=== PATIENT | male | born 1965 | race Caucasian/White ===

== ENCOUNTER 2021-05-21 21:48 | Emergency (ER) | payer SELFPAY ==
[~2021-05-21] VITALS: Ht 188 cm; Wt 93.0 kg
[2021-05-21] MEDS ORDERED: IPRATRPIUM/ALBUTEROL 0.5/2.5MG 3 ML NEBU. NEB ONE (22:00)
[2021-05-21] MEDS ORDERED: ALBUTEROL SULFATE 2.5 MG/3 ML NEBU. CONT NEB ONE (22:00)
[2021-05-21 22:21] LABS: BASO % 0 % (0-3); EOS # 0.2 x10^3/uL (0.0-0.7); EOS % 2 % (0-3); HEMATOCRIT 44.6 % (39.0-53.0); HEMOGLOBIN 15.2 g/dL (13.0-17.5); LYMPH # 3.2 x10^3/uL (1.0-4.8); LYMPH % 30 % (24-48); MEAN CORPUSCULAR HEMOGLOBIN 30 pg (25-35); MEAN CORPUSCULAR HGB CONC 34 g/dL (31-37); MEAN CORPUSCULAR VOLUME 88 fL (79-100); MONO % 10 % (0-9); NEUT % 58 % (31-73); PLATELET COUNT 265 x10^3/uL (140-400); RED BLOOD COUNT 5.09 x10^6/uL (4.30-5.70); RED CELL DISTRIBUTION WIDTH 14.1 % (11.5-14.5); WHITE BLOOD COUNT 10.5 x10^3/uL (4.0-11.0)
[2021-05-21 22:31] LABS: CALCIUM 8.7 mg/dL (8.5-10.1); CREATININE 0.7 mg/dL (0.7-1.3); GFR 116.2; POTASSIUM 4.1 mmol/L (3.5-5.1)
[2021-05-21 22:37] LABS: ALBUMIN 3.5 g/dL (3.4-5.0); ALBUMIN/GLOBULIN RATIO 1.1 (1.0-1.7); TOTAL BILIRUBIN 0.2 mg/dL (0.2-1.0); TOTAL PROTEIN 6.8 g/dL (6.4-8.2)
[2021-05-21] MEDS ORDERED: methylPREDNISolone SOD SUCC PF 125 MG/2 ML VIAL. IV ONE (22:45)
[2021-05-21] MEDS ORDERED: ALBU2.5V8 IH (23:50)
[2021-05-21] MEDS ORDERED: PRED50TA PO (23:50)
--- NOTE | 2021-05-21 23:50 | PHYS DOC ---
Past Medical History Past Medical History: COPD, Hepatitis, Seizure, Other Additional Past Medical Histor: HEARING LOSS LEFT EAR Past Surgical History: No Surgical History Smoking Status: Current Every Day Smoker Alcohol Use: Occasionally Social History Narrative: DANIA HANKS General Adult EDM: Chief Complaint: DYSPNEA/RESPIRATORY DISTRESS HPI: HPI: Patient is a 55 year old male who presents to the emergency department chief complaint of shortness of breath after smoking marijuana and a substance that he believes might have been cracked but could have been methamphetamines. Patient states that he has a long history of smoking anything he can get a hold of to include pot, opium, heroin, crack cocaine, cocaine, and methamphetamines. Patient states that he smokes 2 or more packs of cigarettes per day. Patient states she does drink occasionally, but it is not his drug of choice per his statement. Patient denies any chest pains, denies nausea, vomiting, diarrhea, denies rashes to his skin. Patient states he is hard of hearing on the left ear related to an old injury. Patient states people was talking to his right ear for him to hear properly. Patient reports an allergy to lithium, states he takes Tegretol for seizures, states he has not had a seizure in several weeks now. Patient states his primary care is at [facility] and [facility]. Patient denies any other physical complaints or physical concerns. Review of Systems: Review of Systems: 14 body systems of review of systems have been reviewed. See HPI for pertinent positives and negative responses, otherwise all other systems are negative, nonpertinent or noncontributory. Heart Score: C/O Chest Pain: No Risk Factors: Risk Factors: DM, Current or recent (<one month) smoker, HTN, HLP, family history of CAD, obesity. Risk Scores: Score 0 - 3: 2.5% MACE over next 6 weeks - Discharge Home Score 4 - 6: 20.3% MACE over next 6 weeks - Admit for Clinical Observation Score 7 - 10: 72.7% MACE over next 6 weeks - Early Invasive Strategies Current Medications: Current Medications Medications (Trade) Dose Ordered Sig/Cinthya Start Time Stop Time Status Last Admin Dose Admin Albuterol Sulfate (Ventolin Neb Soln) 10 mg 1X ONCE 05/21/21 22:00 05/21/21 22:36 DC 05/21/21 22:25 10 MG Albuterol/ Ipratropium (Duoneb) 3 ml 1X ONCE 05/21/21 22:00 05/21/21 22:36 DC 05/21/21 22:25 3 ML Methylprednisolone Sodium Succinate (SOLU-Medrol 125MG VIAL) 125 mg 1X ONCE 05/21/21 22:45 05/21/21 22:46 DC 05/21/21 22:42 125 MG Allergies: Allergies: Allergies Coded Allergies Type Severity Reaction Last Updated Verified lithium Allergy Intermediate 05/21/21 Yes Physical Exam: PE: Constitutional: Well developed, well nourished, mild respiratory distress, non- toxic appearance. 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 HENT: Normocephalic, atraumatic. No drooling, no trismus. Eyes: Conjunctiva normal, no discharge. Patient wears glasses. Neck: Normal range of motion, no stridor. No nuchal rigidity appreciated, no meningismus signs. Cardiovascular: No cyanosis appreciated, distal cap refill less than 2 seconds. Lungs & Thorax: Audible I/E wheezing, inspiratory expiratory wheezing appreciated all lung cox per auscultation. Patient not using accessory m uscles. Abdomen: Nontender, no abnormalities noted. Skin: Warm, dry, no erythema, no rash. [] Back: No tenderness, no deformities. Extremities: No tenderness, no cyanosis, no clubbing, ROM intact, no edema. [] Neurologic: Alert and oriented X 3, normal motor function, normal sensory function, no focal deficits noted. Psychologic: Affect normal, judgement normal, mood normal. Current Patient Data: Labs: Laboratory Tests Test 05/21/21 22:05 White Blood Count 10.5 x10^3/uL (4.0-11.0) Red Blood Count 5.09 x10^6/uL (4.30-5.70) Hemoglobin 15.2 g/dL (13.0-17.5) Hematocrit 44.6 % (39.0-53.0) Mean Corpuscular Volume 88 fL (79-100) Mean Corpuscular Hemoglobin 30 pg (25-35) Mean Corpuscular Hemoglobin Concent 34 g/dL (31-37) Red Cell Distribution Width 14.1 % (11.5-14.5) Platelet Count 265 x10^3/uL (140-400) Neutrophils (%) (Auto) 58 % (31-73) Lymphocytes (%) (Auto) 30 % (24-48) Monocytes (%) (Auto) 10 % (0-9) H Eosinophils (%) (Auto) 2 % (0-3) Basophils (%) (Auto) 0 % (0-3) Neutrophils # (Auto) 6.0 x10^3/uL (1.8-7.7) Lymphocytes # (Auto) 3.2 x10^3/uL (1.0-4.8) Monocytes # (Auto) 1.0 x10^3/uL (0.0-1.1) Eosinophils # (Auto) 0.2 x10^3/uL (0.0-0.7) Basophils # (Auto) 0.0 x10^3/uL (0.0-0.2) Sodium Level 141 mmol/L (136-145) Potassium Level 4.1 mmol/L (3.5-5.1) Chloride Level 104 mmol/L (98-107) Carbon Dioxide Level 29 mmol/L (21-32) Anion Gap 8 (6-14) Blood Urea Nitrogen 16 mg/dL (8-26) Creatinine 0.7 mg/dL (0.7-1.3) Estimated GFR (Cockcroft-Gault) 116.2 BUN/Creatinine Ratio 23 (6-20) H Glucose Level 113 mg/dL (70-99) H Lactic Acid Level 1.4 mmol/L (0.4-2.0) Calcium Level 8.7 mg/dL (8.5-10.1) Total Bilirubin 0.2 mg/dL (0.2-1.0) Aspartate Amino Transferase (AST) 37 U/L (15-37) Alanine Aminotransferase (ALT) 39 U/L (16-63) Alkaline Phosphatase 104 U/L (46-116) Troponin I Quantitative < 0.017 ng/mL (0.000-0.055) WV-Mix-Z-Type Natriuretic Peptide 247 pg/mL (0-124) H Total Protein 6.8 g/dL (6.4-8.2) Albumin 3.5 g/dL (3.4-5.0) Albumin/Globulin Ratio 1.1 (1.0-1.7) Laboratory Tests 05/21/21 22:05 Laboratory Tests 05/21/21 22:05 Vital Signs: Vital Signs Date Time Temp Pulse Resp B/P (MAP) Pulse Ox O2 Delivery O2 Flow Rate FiO2 05/21/21 23:07 104 20 127/78 (94) 95 Room Air 05/21/21 22:31 2.0 05/21/21 21:52 98.6 98.6 EKG: EKG: [] Radiology/Procedures: Radiology/Procedures: PATIENT: ANNA MOORE ACCOUNT: [id number] : 1965 LOCATION: ER AGE: 55 SEX: M EXAM STATUS: REG ER ORD. PHYSICIAN: CARRI LÓPEZ APRN REASON: short of breath/BREATHING TX OVER AT 11:30 PROCEDURE: PORTABLE CHEST 1V AP chest. HISTORY: Short of breath AP view was taken of the chest. Lungs are free of infiltrates. Heart is normal in size. There is no effusion. There is an old healed right clavicle fracture. IMPRESSION: 1. No acute infiltrates. Electronically signed by: Wilbur Estrella MD (05/21/2021 11:50 PM) [facility] DICTATED and SIGNED BY: WILBUR ESTRELLA MD DATE: 05/21/21 [id number] 0 Course & Med Decision Making: Course & Med Decision Making Pertinent Labs and Imaging studies reviewed. (See chart for details) 55-year-old male, vital signs reviewed, presents emergency department chief co mplaint of shortness of breath after smoking an unknown substance that he believes was either crack or methamphetamine. Physical presentation patient had audible IV wheezing, patient was not hypoxic, patient was not cyanotic, will order PITER treatment followed by continuous albuterol nebulizer treatment. Chest x-ray. 125 mg of Solu-Medrol IV. Patient's chest x-ray negative for acute process, patient was in no respiratory distress upon reevaluation after breathing treatments, discussed with patient cessation of illicit drug use and smoking, discussed with patient prescriptions for oral prednisone and albuterol MDI. Patient gave verbal understanding of discharge home instructions, follow-up with primary care physician at treatment tomorrow, return to ER precautions and concerns, patient had no further questions or concerns and was thankful for helping him feel better and breathe better, patient was discharged to home without incident, remained hemodynamically stable at disposition time. Dragon Disclaimer: Dragon Disclaimer: This electronic medical record was generated, in whole or in part, using a voice recognition dictation system. Departure Departure Impression: Primary Impression: Dyspnea Qualified Codes: R06.02 - Shortness of breath Additional Impression: Polysubstance abuse Disposition: HOME / SELF CARE / HOMELESS Condition: GOOD Referrals: UNKNOWN PCP NAME (PCP) Additional Instructions: You were seen today in the emergency department for shortness of breath. You were given breathing treatments and steroids through an IV helped resolve your symptoms. You had indicated you smoke multiple different types of drugs to in clude meth and crack cocaine. Please stop smoking illicit drugs as they will make your symptoms worse. I am prescribing you a prescription for an inhaler and an oral steroid and [facility] as you have requested. Please fill them and start tomorrow. Take them as directed. Please return to the emergency department for worsening symptoms or other concerns. It was a pleasure taking care of you today in the emergency department and I thank you for allowing me to participate in your emergency room care. EMERGENCY DEPARTMENT GENERAL DISCHARGE INSTRUCTIONS Thank you for coming to [facility] Emergency Department (ED) today and trusting us with you care. We trust that you had a positive experience in our Emergency Department. If you wish to speak to the department management, you may call the Director at [phone]. YOUR FOLLOW UP INSTRUCTIONS ARE FOLLOWS: 1. Do you have a private Doctor? If you do not have a private doctor, please ask for a resource list of physicians or clinics that may be able to assist you with follow up care. 2. The Emergency Physicain has interpreted your x-rays. The X-Ray specialist will also review them. If there is a change in the findings, you will be notified in 48 hours when at all possible. 3. A lab test or culture has been done, your results will be reviewed and you will be notified if you need a change in treatment. ADDITIONAL INSTRUCTIONS AND INFORMATION: 1. Your care today has been supervised by a physician who is specially trained in emergency care. Many problems require more than one evaluation for a complete diagnosis and treatment. We recommend that you schedule your follow up appointment as recommended to ensure complete treatment of you illness or injury. If you are unable to obtain follow up care and continue to have a problem, or if your condition worsens, we recommend that you return to the ED. 2. We are not able to safely determine your condition over the phone nor are we able to give sound medical advice over the phone. For these safety reasons, if you call for medical advice we will ask you to come to the ED for further evaluation. 3. If you have any questions regarding these discharge instructions please call the ED at [phone]. SAFETY INFORMATION: In the interest of safety, wellness, and injury prevention; we encourage you to wear your sealbelt, if you smoke; quite smoking, and we encourage family to use a protec tive helmet for bicycling and other sporting events that present an increased risk for head injury. IF YOUR SYMPTOMS WORSEN OR NEW SYMPTOMS DEVELOP, OR YOU HAVE CONCERNS ABOUT YOUR CONDITION; OR IF YOUR CONDITION WORSENS WHILE YOU ARE WAITING FOR YOUR FOLLOW UP APPOINTMENT; EITHER CONTACT YOUR PRIMARY CARE DOCTOR, THE PHYSICIAN WHOSE NAME AND NUMBER YOU WERE GIVEN, OR RETURN TO THE ED IMMEDIATELY. Scripts Albuterol Sulfate (PROAIR HFA INHALER) 8.5 Gm Hfa.aer.ad 2 PUFF IH PRN Q4-6HRS PRN for wheezing for 21 Days, #1 INHALER 0 Refills Prov: CARRI LÓPEZ APRN 05/21/21 Prednisone (PREDNISONE) 50 Mg Tablet 1 TAB PO DAILY for short of breath, #5 TAB 0 Refills Prov: CARRI LÓPEZ APRN 05/21/21 CARRI LÓPEZ APRN May 21, 2021 23:50
--- NOTE | 2021-05-21 23:52 | RAD ---
AP chest. HISTORY: Short of breath AP view was taken of the chest. Lungs are free of infiltrates. Heart is normal in size. There is no e ffusion. There is an old healed right clavicle fracture. IMPRESSION: 1. No acute infiltrates. Electronically signed by: Wilbur Estrella MD (05/21/2021 11:50 PM) [facility]
[2021-05-22 00:30] VITALS: BP 121/71
== END 2021-05-22 00:35 | disposition home or self-care (01) ==
LOC: ER 21:48
DX: R06.02 Shortness of breath (principal); F19.10 Other psychoactive substance abuse, uncomplicated; J44.9 Chronic obstructive pulmonary disease, unspecified; F17.200 Nicotine dependence, unspecified, uncomplicated; Z88.8 Allergy status to other drugs, medicaments and biological substances
CPT/HCPCS: 36415; 71045; 80053; 83605; 83880; 84484; 85025; 94640; 94644; 96374; 99285; J2930; J7613